=== PATIENT | male | born 1995 | race Caucasian/White ===

== ENCOUNTER 2021-09-30 18:46 | Emergency (ER) | payer BC, SELFPAY ==
[2021-09-30 18:54] VITALS: BP 145/77; PULSE 86; RESP 16; TEMP 36.6; O2SAT 96
--- NOTE | 2021-09-30 19:18 | ED.SKABFB ---
HPI - Skin/Abscess/Foreign Bdy General Chief complaint: Skin/Abscess/Foreign Body Stated complaint: R face/cheek swollen feels like an air pocket Time Seen by Provider: 09/30/21 19:09 History of Present Illness HPI narrative: Patient is a 26-year-old healthy male here for evaluation of a lesion on his cheek. He states that the lesion developed about 2 weeks ago, has been fluctuating in size since then. He has been squeezing the lesion and expressing blood. He states he has also been picking at the lesion quite frequently. Has not attempted any medication for the lesion. Denies fevers, chills, nausea, vomiting, dental pain. Related Data Allergies Allergy/AdvReac Type Severity Reaction Status Date / Time No Known Allergies Allergy Mild Unverified 04/16/08 15:40 Review of Systems Review of Systems: Gen: Denies fevers or chills Eyes: Denies eye pain or visual change ENT: Denies congestion Respiratory: Denies shortness of breath or cough CV: Denies chest pain or palpitations GI: Denies abdominal pain nausea, emesis or diarrhea denies burning, urgency, frequency or hematuria Musculoskeletal: Denies back pain or muscle pain Neuro: Denies numbness, tingling, weakness or focal weakness Skin: Reports lesion to right cheek Except as documented, all other systems reviewed and negative Exam Narrative: Gen: alert, oriented, no acute distress Eyes: EOMI, no icterus Pulm: Respirations even and unlabored, symmetric thorax expansion, no audible stridor or visible cyanosis CV: Regular rate per telemetry GI: No distension, no voluntary/involuntary guarding Neuro: AOx4, moves all extremities without apparent difficulty or weakness, follows commands Skin: patient has 1cm circular area of induration to right cheek that is open and draining serosanguineous material with manual manipulation. No surrounding erythema. Psych: Normal mood/affect, insight/judgement good, adequate fund of knowledge, recent/remote memory intact Course Vital Signs Vital signs: Vital Signs Temperature 97.9 F 09/30/21 18:54 Pulse Rate 86 09/30/21 18:54 Respiratory Rate 16 09/30/21 18:54 Blood Pressure 145/77 H 09/30/21 18:54 Pulse Oximetry 96 09/30/21 18:54 Oxygen Delivery Room Air 09/30/21 18:54 Temperature 97.9 F 09/30/21 18:54 Pulse Rate 86 09/30/21 18:54 Respiratory Rate 16 09/30/21 18:54 Blood Pressure 145/77 H 09/30/21 18:54 Pulse Oximetry 96 09/30/21 18:54 Oxygen Delivery Room Air 09/30/21 18:54 MDM - Skin/Abscess/Foreign Bdy MDM Narrative Medical decision making narrative: 26-year-old male here for evaluation of what appears to be a cyst on his cheek. He is nontoxic-appearing with normal vital signs. Do not feel incision and drainage is indicated given that the lesion is currently draining serosanguineous material. Will prescribe doxycycline for patient, discussed return precautions and voiced understanding. Discharge Plan Discharge Clinical Impression: Epidermoid cyst of skin of cheek Patient Disposition: Home, Self-Care Condition: Stable Instructions: Antibiotic Form, Cyst (ED) Additional Instructions: The lesion on your cheek is likely a cyst, which is a benign lesion. Please follow up with your PCP next week if the lesion does not improve with antibiotics. Return to the ED if you develop fevers, chills, nausea, vomiting. Prescriptions: New doxycycline hyclate 100 mg capsule 100 mg PO DAILY Qty: 7 0RF Follow-up/Referrals: PHYSICIAN,RN HEDIS [Primary Care Provider] -
== END 2021-09-30 19:41 | disposition home or self-care (01) ==
PROVIDERS: Emergency Provider Emergency Medicine
DX: L72.8 Other follicular cysts of the skin and subcutaneous tissue (principal)
CPT/HCPCS: 99283

== ENCOUNTER 2022-09-21 22:04 | Emergency (ER) | payer BC, SELFPAY ==
[2022-09-21 22:06] VITALS: BP 121/66; PULSE 83; RESP 15; TEMP 36.3; O2SAT 97
[2022-09-21 22:22] LABS: Basophils Percent Auto 0.7 % (0.2-1.2); Eosinophils Absolute Auto 0.1 K/mm3 (0-0.3); Eosinophils Percent Auto 1.8 % (0-4.4); Hematocrit 44.1 % (42.0-52.0); Immature Granulocyte Absolute 0.01 K/mm3 (0.00-0.031); Immature Granulocyte Percent A 0.2 % (0-0.5); Lymphocytes Absolute Auto 1.58 K/mm3 (0.9-3.2); Lymphocytes Percent Auto 28.4 % (18.3-44.2); Mean Corpuscular Hemoglobin 29.8 pg (26-34); Mean Corpuscular Volume 87.5 fl (80-100); Mean Platelet Volume 11.7 fl (7.4-10.4); Monocytes Absolute Auto 0.7 K/mm3 (0.1-0.6); Monocytes Percent Auto 11.9 % (2.6-8.5); Neutrophils Absolute Auto 3.2 K/mm3 (1.3-6.7); Platelet Count Result 163 k/mm3 (150-375); Red Blood Count 5.04 M/mm3 (4.6-6.20); Red Cell Distribution Width 12.4 % (11.5-14.5); White Blood Count 5.6 K/mm3 (4.5-10.0)
[2022-09-21 22:31] LABS: Alanine Aminotransferase 14 U/L (6-50); Albumin Level 4.5 g/dL (3.5-5.1); Alkaline Phosphatase 77 U/L (38-126); Anion Gap 7 mmol/L (8-16); Aspartate Amino Transferase 20 U/L (17-59); Bilirubin,Total 0.5 mg/dL (0.2-1.3); Blood Urea Nitrogen 12 mg/dL (9-20); Calcium 7.1 mg/dL (8.4-10.2); Carbon Dioxide 25 mmol/L (22-30); Chloride 102 mmol/L (98-107); Estimated Glomerular Filt Rate > 60; Glucose 93 mg/dL (65-110); Potassium 3.8 mmol/L (3.4-5.0); Sodium 134 mmol/L (137-145)
[2022-09-21 22:57] LABS: Influenza A QL RT-PCR Negative (Negative); Influenza B QL RT-PCR Negative (Negative); RSV RNA, RT-PCR Negative (Negative); SARS-CoV-2 RNA PCR Negative (Negative)
--- NOTE | 2022-09-21 23:10 | ED.GENADULT ---
HPI - General Adult General Chief complaint: Upper Respiratory Infection Stated complaint: cold symptoms Time Seen by Provider: 09/21/22 22:17 Source: patient Mode of arrival: ambulatory Limitations: no limitations History of Present Illness HPI narrative: This is a 27-year-old male who presents to the ED with chief complaint of viral URI symptoms for the past week. Reports that at times he feels like he is short of breath but feels like he cannot breathe through his nose. He reports a lot of sinus congestion and pressure as well as runny nose and sore throat. States that he feels like he is breathing fine right now. Denies chest pain, fevers, chills, abdominal pain, nausea, vomiting. Denies any known sick contacts. Related Data Allergies Allergy/AdvReac Type Severity Reaction Status Date / Time No Known Allergies Allergy Mild Unverified 04/16/08 15:40 Review of Systems Review of Systems: All systems as dictated in HPI Exam Narrative: GENERAL: Well-appearing, well-nourished, and in no acute distress. HEAD: Normocephalic, atraumatic. EYES: PERRLA and EOMI. ENT: Nares clear, no rhinorrhea or epistaxis. Mucous membranes moist. Oropharynx without tonsillar hypertrophy exudate or other lesions. NECK: Supple. No adenopathy or masses. CHEST: No respiratory distress. Clear to auscultation. No wheezes rales or rhonchi. Breath sounds equal bilaterally. HEART: Regular rate and rhythm. No murmur heard. Normal peripheral pulses. ABDOMEN: Soft, nontender, nondistended, normal active bowel sounds. MSK: Normal range of motion. No edema. SKIN: Warm, dry, no rash. NEURO: Alert and oriented x3. No focal deficits. PSYCH: Normal mood and affect. Course Vital Signs Vital signs: Vital Signs Temperature 97.4 F L 09/21/22 22:06 Pulse Rate 83 09/21/22 22:06 Respiratory Rate 15 09/21/22 22:06 Blood Pressure 121/66 09/21/22 22:06 Pulse Oximetry 97 09/21/22 22:06 Oxygen Delivery Room Air 09/21/22 22:06 Temperature 97.4 F L 09/21/22 22:06 Pulse Rate 83 09/21/22 22:06 Respiratory Rate 15 09/21/22 22:06 Blood Pressure 121/66 08/10/23 22:06 Pulse Oximetry 97 09/21/22 22:06 Oxygen Delivery Room Air 09/21/22 22:06 Medical Decision Making MDM Narrative Medical decision making narrative: This is a 27-year-old male who presents to the ED with chief complaint of viral URI symptoms for the past week. Vitals are normal. Exam is benign. Lab work is unremarkable. Negative strep and COVID and flu tests. Symptoms are consistent with viral upper respiratory infection. Prescriptions for albuterol, Flonase given. Also encourage patient to take Tylenol cold and sinus for congestion symptoms. Pt will be discharged in stable condition. Return precautions given and supportive measures discussed. Pt is understanding and agreeable with plan for discharge and follow-up with PCP. Vital Signs Vital Signs: Vital Signs Temperature 97.4 F L 09/21/22 22:06 Pulse Rate 83 09/21/22 22:06 Respiratory Rate 15 09/21/22 22:06 Blood Pressure 121/66 09/21/22 22:06 Pulse Oximetry 97 09/21/22 22:06 Oxygen Delivery Room Air 09/21/22 22:06 Temperature 97.4 F L 09/21/22 22:06 Pulse Rate 83 09/21/22 22:06 Respiratory Rate 15 09/21/22 22:06 Blood Pressure 121/66 09/21/22 22:06 Pulse Oximetry 97 09/21/22 22:06 Oxygen Delivery Room Air 09/21/22 22:06 Lab Data 09/21/22 22:16 09/21/22 22:16 Labs: Lab Results 09/21/22 Range/Units 22:16 WBC 5.6 (4.5-10.0) K/mm3 RBC 5.04 (4.6-6.20) M/mm3 Hgb 15.0 (14.0-18.0) g/dL Hct 44.1 (42.0-52.0) % MCV 87.5 (80-100) fl MCH 29.8 (26-34) pg MCHC 34.0 (32-36) g/dl RDW 12.4 (11.5-14.5) % Plt Count 163 (150-375) k/mm3 MPV 11.7 H (7.4-10.4) fl Immature Gran % (Auto) 0.2 (0-0.5) % Neut % (Auto) 57.0 (45.5-73.1) % Lymph % (Auto) 28.4 (18.3-44.2) % [place] % (Auto
== END 2022-09-21 23:21 | disposition home or self-care (01) ==
PROVIDERS: Emergency Medicine; Emergency Provider Physician Assistant; PCP Physician Assistant
DX: J06.9 Acute upper respiratory infection, unspecified (principal); Z20.822 Contact with and (suspected) exposure to COVID-19
CPT/HCPCS: 36415; 80053; 85025; 87637; 99283

== ENCOUNTER 2022-10-29 18:12 | Emergency (ER) | payer BC, SELFPAY ==
--- NOTE | ~2022-10-29 | XR_ITS ---
EXAMINATION: XR hand RT min 3V DATE: 10/29/2022 20:28 INDICATION: Dog bite to the posterior base of the second metacarpal TECHNIQUE: Posteroanterior, oblique and lateral views of the right hand were obtained. COMPARISON: None. FINDINGS: Alignment is normal. No fracture. Joint spaces are normal. Soft tissues are unremarkable. IMPRESSION: 1. Negative right hand radiographs. Reviewed, dictated and finalized at location A.
[2022-10-29 18:14] VITALS: BP 122/69; PULSE 77; RESP 14; TEMP 36.8; O2SAT 97
--- NOTE | 2022-10-29 20:13 | ED.ANIMALBIT ---
HPI - Animal Bite General Chief Complaint: Animal Bite Stated Complaint: dog bite R hand Time Seen by Provider: 10/29/22 19:31 History of Present Illness HPI narrative: Patient is a 27-year-old male presenting after dog bite. Patient states that the neighbors dog has been barking at him every time he walks by for the last week. Today the neighbor was outside and said the patient could try to pet the dog. The patient went to pet the dog and it immediately bit his hand. Unsure on vaccination status of the dog but they state that they can speak with the neighbor. They are going to file a police report. He has a puncture wound on his right hand, no other injuries. No further complaints. He is unsure on Tdap status. Related Data Allergies Allergy/AdvReac Type Severity Reaction Status Date / Time No Known Allergies Allergy Mild Verified 10/29/22 19:36 Review of Systems Review of Systems: All systems reviewed & are unremarkable except as noted in HPI and below Exam Narrative: GENERAL: Well-appearing and in no acute distress. Pleasant and cooperative HEAD: Normocephalic, atraumatic. EYES: PERRLA and EOMI. ENT: Mucous membranes moist. NECK: Supple. CHEST: No respiratory distress. HEART: Regular rate and rhythm ABDOMEN: Nondistended EXTREMITIES: puncture wound to dorsum of R hand at base of thumb with surround swelling and mild ecchymosis SKIN: Warm, dry, as above NEURO: No focal deficits. Alert and oriented x3. PSYCH: Normal mood and affect. Course Vital Signs Vital signs: Vital Signs Temperature 98.3 F 10/29/22 18:14 Pulse Rate 77 10/29/22 18:14 Respiratory Rate 14 10/29/22 18:14 Blood Pressure 122/69 10/29/22 18:14 Pulse Oximetry 97 10/29/22 18:14 Oxygen Delivery Room Air 10/29/22 18:14 Temperature 98.3 F 10/29/22 18:14 Pulse Rate 77 10/29/22 18:14 Respiratory Rate 14 10/29/22 18:14 Blood Pressure 122/69 10/29/22 18:14 Pulse Oximetry 97 10/29/22 18:14 Oxygen Delivery Room Air 10/29/22 18:14 MDM - Animal Bite MDM Narrative Medical decision making narrative: Patient is a 27-year-old male presenting after a dog bite. Vitals are stable. Exam remarkable for the above. X-ray shows no fractures or retained foreign bodies. Patient's Tdap was updated and he was given a dose of Augmentin. The wound was thoroughly irrigated. Patient states that he will follow-up with the neighbor regarding vaccination status. He will be filing a police report and speaking with animal control. Discussed with him if the animal does not have its shots or cannot be observed then he needs to come back for rabies series. Advised PCP follow-up. Appropriate return precautions given. Patient voiced understanding and is agreeable with plan. Discharged in stable condition. Differential Diagnosis Differential diagnosis: Likely bite by animal, cat bite and dog bite Medical Records Attestation: I reviewed the patient's medical records. Imaging Data Radiologist's impression: ITS Impressions Hand X-Ray 10/29/22 20:34 IMPRESSION: 1. Negative right hand radiographs. Critical Care Time Critical Care Time Critical Care Time: No Discharge Plan Discharge Clinical Impression: Dog bite Patient Disposition: Home, Self-Care Condition: Stable Instructions: Antibiotic Form, Animal Bite (ED) Additional Instructions: The x-rays today show no broken bones or retained foreign bodies. We have started you on antibiotics, please take these as prescribed. Please follow-up with your neighbor regarding the vaccination status of the dog. Please follow-up closely with primary care. If you develop signs of infection such as spreading redness, drainage, fevers, or other concerning symptoms, please return to the ER. Prescriptions: New amoxicillin-pot clavulanate 875-125 mg tablet 1 tablet PO Q12H Qty: 20 0RF No Action doxycycline hyclate 100 mg capsule 100 mg
[2022-10-29] MEDS: AMOXICILLIN/CLAVULANATE K 875-125 MG TAB 1 TABLET PO (20:28)
[2022-10-29] MEDS: TETANUS,DIPHTHERIA,AC PERTUSSIS ADULT (0.5 ML) BOOSTRIX IM (20:28)
== END 2022-10-29 21:04 | disposition home or self-care (01) ==
PROVIDERS: Emergency Provider Emergency Medicine; PCP Physician Assistant
DX: S61.451A Open bite of right hand, initial encounter (principal); W54.0XXA Bitten by dog, initial encounter; Z23 Encounter for immunization
CPT/HCPCS: 73130; 90471; 90715; 99283; A9270

== ENCOUNTER 2023-04-14 22:41 | Emergency (ER) | payer BC, SELFPAY ==
[2023-04-14 22:52] VITALS: BP 119/69; PULSE 98; RESP 15; TEMP 36.4; O2SAT 97
--- NOTE | 2023-04-14 23:58 | ED.GENADULT ---
HPI - General Adult General Chief complaint: Upper Respiratory Infection Stated complaint: cold, congestion Time Seen by Provider: 04/14/23 23:01 Source: patient Mode of arrival: ambulatory Limitations: no limitations History of Present Illness HPI narrative: This is a 28-year-old male who presents to the ED with chief complaint of URI symptoms for the past 2 days. Endorses cough, congestion, subjective fevers. Also reports sore throat. Denies shortness of breath, chest pain, abdominal pain, nausea, vomiting, neck pain, headache. Related Data Allergies Allergy/AdvReac Type Severity Reaction Status Date / Time No Known Allergies Allergy Mild Verified 04/15/23 00:09 Review of Systems Review of Systems: All systems as dictated in HPI Exam Narrative: GENERAL: Well-appearing, well-nourished, and in no acute distress. HEAD: Normocephalic, atraumatic. EYES: PERRLA and EOMI. ENT: Nares clear, no rhinorrhea or epistaxis. Mucous membranes moist. Oropharynx without tonsillar hypertrophy exudate or other lesions. NECK: Supple. No adenopathy or masses. CHEST: No respiratory distress. Clear to auscultation. No wheezes rales or rhonchi HEART: Regular rate and rhythm. No murmur heard. Normal peripheral pulses. ABDOMEN: Soft, nontender, nondistended, normal active bowel sounds. MSK: Normal range of motion. No edema. SKIN: Warm, dry, no rash. NEURO: Alert and oriented x3. No focal deficits. PSYCH: Normal mood and affect. Course Vital Signs Vital signs: Vital Signs Temperature 97.5 F L 04/14/23 22:52 Pulse Rate 98 04/14/23 22:52 Respiratory Rate 15 04/14/23 22:52 Blood Pressure 119/69 04/14/23 22:52 Pulse Oximetry 97 04/14/23 22:52 Temperature 97.5 F L 04/14/23 22:52 Pulse Rate 87 04/15/23 01:18 Respiratory Rate 16 04/15/23 01:18 Blood Pressure 124/68 04/15/23 01:18 Pulse Oximetry 99 04/15/23 01:18 Oxygen Delivery Room Air 04/15/23 00:09 Medical Decision Making [facility] Narrative Medical decision making narrative: This is a 28-year-old male presents to the ED for chief complaint of URI symptoms for the past 2 days. Vitals are normal. Exam is benign. Presentation consistent with viral syndrome. Viral swabs here negative. Centor criteria for strep throat is 0. Pt will be discharged in stable condition. Return precautions given and supportive measures discussed. Pt is understanding and agreeable with plan for discharge and follow-up with PCP. Vital Signs Vital Signs: Vital Signs Temperature 97.5 F L 04/14/23 22:52 Pulse Rate 98 04/14/23 22:52 Respiratory Rate 15 04/14/23 22:52 Blood Pressure 119/69 04/14/23 22:52 Pulse Oximetry 97 04/14/23 22:52 Temperature 97.5 F L 04/14/23 22:52 Pulse Rate 87 04/15/23 01:18 Respiratory Rate 16 04/15/23 01:18 Blood Pressure 124/68 04/15/23 01:18 Pulse Oximetry 99 04/15/23 01:18 Oxygen Delivery Room Air 04/15/23 00:09 Lab Data Labs: Lab Results 04/14/23 Range/Units 22:57 Influenza A (RT-PCR) Negative (Negative) Influenza B (RT-PCR) Negative (Negative) RSV (RT-PCR) Negative (Negative) SARS-CoV-2 RNA (RT-PCR) Negative (Negative) Discharge Plan Discharge Clinical Impression: Upper respiratory infection Patient Disposition: Home, Self-Care Condition: Stable Instructions: Antibiotic Form, Viral Syndrome (ED) Additional Instructions: Your exam today is consistent with viral syndrome. Follow-up with PCP. Make sure they stay well hydrated. Take Tylenol and ibuprofen every 4-6 hours as needed for pain and fevers. If you have any new or worsening symptoms please return to the ER for further evaluation. Prescriptions: No Action doxycycline hyclate 100 mg capsule 100 mg PO DAILY Qty: 7 0RF albuterol sulfate 90 mcg/actuation HFA aerosol inhaler 2 puff inhalation QID PRN (Reason: shortness of breath or wheezing) Qty: 6.7 0RF flutic
[2023-04-15 00:09] VITALS: O2SAT 97
[2023-04-15 00:48] LABS: Influenza A QL RT-PCR Negative (Negative); Influenza B QL RT-PCR Negative (Negative); RSV RNA, RT-PCR Negative (Negative); SARS-CoV-2 RNA PCR Negative (Negative)
[2023-04-15 01:18] VITALS: BP 124/68; PULSE 87; RESP 16; O2SAT 99
== END 2023-04-15 01:19 | disposition home or self-care (01) ==
PROVIDERS: Emergency Medicine; Emergency Provider Physician Assistant; PCP Physician Assistant
DX: J06.9 Acute upper respiratory infection, unspecified (principal); Z20.822 Contact with and (suspected) exposure to COVID-19
CPT/HCPCS: 87637; 99283

== ENCOUNTER 2024-03-14 09:29 | Emergency (ER) | payer BC, SELFPAY ==
[2024-03-14 10:02] VITALS: BP 127/78; PULSE 91; RESP 16; TEMP 36.8; O2SAT 97
--- NOTE | 2024-03-14 10:23 | ED.EYEPROB ---
HPI - Eye Problem General Chief complaint: Eye Problems Stated complaint: BLISTERS BELOW L EYE Time Seen by Provider: 03/14/24 09:33 Source: patient Mode of arrival: ambulatory Limitations: no limitations History of Present Illness HPI Narrative: Patient is a 20-year-old male who presents with blister/pustules under left eye near cheek bone for 4 days. Patient describes it as burning and is painful intermittently. Denies any vision changes, drainage from eye, or pain in eyeball itself. Related Data Allergies Allergy/AdvReac Type Severity Reaction Status Date / Time No Known Allergies Allergy Mild Verified 03/14/24 09:59 Review of Systems Review of Systems: All systems reviewed & are unremarkable except as noted in HPI and below Constitutional: Constitutional: Denies body ache(s), Denies fever(s), Denies headache(s), Denies malaise and Denies weakness Eyes: Eyes: Reports blurry vision, Reports eye discharge, Reports irritation, Reports itchy eyes, Denies loss of vision and Reports eye pain ENT: Denies otalgia, Denies headache(s), Denies nasal discharge, Denies sinus pain and Denies sore throat Cardiovascular: Cardiovascular: Denies chest pain, Denies irregular heart rhythm and Denies dyspnea Respiratory: Respiratory: Denies dyspnea Gastrointestinal: Gastrointestinal: Denies abdominal pain, Denies diarrhea, Denies nausea and Denies vomiting Musculoskeletal: Musculoskeletal: Denies back pain, Denies myalgias and Denies arthralgias Integumentary/Breasts: Skin/Breast: Denies pruritus, Reports new lesions, Denies rash and Reports skin pain Neurologic: Denies headache(s), Denies loss of vision and Denies weakness Psychiatric: Psychiatric: Reports no additional psychiatric complaints Allergic/Immunologic: Allergic/Immunologic: Reports itchy eyes PMFSH Comments At time of signature, agree with nursing past medical, surgical, social and family history. There is no relevant family history pertinent to the presenting complaint. Exam Const: General: cooperative, healthy appearing, comfortable, no acute distress and well nourished Nutritional Appearance: well nourished Orientation/consciousness: patient oriented x3 Limitations: no limitations HENMT: Head: normal to inspection, normocephalic and atraumatic Ears: external ears normal Face/Nose/Sinus: Normal external nose present, normal facial exam and face symmetric Face and sinus: normal facial exam and face symmetric Mouth: Yes lip normal Eyes: General: appearance normal, both eyes and all related structures Visual Mills: normal visual mills by confrontation Alignment and Position: alignment normal and position normal Periorbital: periorbital findings normal Eyelids: eyelid abnormality right upper eyelid erythema and swelling and right lower eyelid erythema and swelling Conjunctivae: conjunctival abnormality right conjunctival injection diffuse Sclera: scleral abnormality right scleral injection diffuse Pupils: Equal, round and reactive pupils present EOM: EOMs intact bilaterally Direct Ophthalmoscopy: no photophobia Other: No hyphema, no foreign body under the lids. Neck: Neck: normal visual inspection, full ROM, no lymphadenopathy and no meningeal signs Chest: Chest palpation & inspection: normal inspection of the chest Resp: Effort & Inspection: normal respiratory effort and able to speak in complete sentences Auscultation: clear to auscultation bilaterally Cardio: Rate: regular rate Rhythm: regular rhythm Heart sounds: S1 normal heart sound present and S2 normal heart sound present GI: Inspection: normal to inspection Skin: General skin exam: normal color Rashes: rashes noted vesicles left cheek size (0.25 cm vesicles), arrangement grouped, borders sharp, color with an erythematous base, surface erythematous and wet and tender; fluctuant not assessed Full body images:  1. 1.5 cm area of grouped vesicles Neuro: General: patient oriented x3, moves all extremities and no meningeal signs Cranial nerves: Yes Equal, round and reactive pupils present Speech: normal speech Gait exam (Neuro): Normal gait present Extrem: General: normal to inspection, full ROM and no edema Psych: Appearance: grossly normal and well kempt Mental Status: mental status grossly normal Speech and movement: Normal speech and movement present Affect: normal affect Attitude: cooperative Thought process: Normal thought process present Course Course Emergency Course: Patient is aware of diagnosis, understands and agrees to treatment plan. Anticipatory guidance given. Patient agrees to follow-up as directed and is aware of reasons to seek care at the emergency department. Portions of this record may have been created with voice recognition software Level of Care: Express Care Visit Vital Signs Vital signs: Vital Signs Temperature 36.8 C 03/14/24 10:02 Pulse Rate 91 03/14/24 10:02 Respiratory Rate 16 03/14/24 10:02 Blood Pressure 127/78 03/14/24 10:02 Pulse Oximetry 97 03/14/24 10:02 Temperature 36.8 C 03/14/24 10:02 Pulse Rate 91 03/14/24 10:02 Respiratory Rate 16 03/14/24 10:02 Blood Pressure 127/78 03/14/24 10:02 Pulse Oximetry 97 03/14/24 10:02 Reviewed MDM - Eye Problem MDM Narrative Medical decision making narrative: Patient was seen yesterday at [facility] in [place]. Family unsure of doctor's name. Reports patient had rash at that time and irrigator head did not have concerns. Reports internal eye exam is normal. Reports they do not want to go to the ER at this time some today for just seen by Ophthalmology, but will if there are any changes to rash or vision in left eye. Will start patient on antiviral and have them follow-up with PCP. Patient also given number for [facility]. Pt well hydrated appearing, in no respiratory distress, hemodynamically stable. Recommend supportive care. The patient is stable at time of discharge the clinical impression was discussed and the patient was given the opportunity to ask questions, which were addressed as completely as possible given the information available at present. Anticipatory guidance and return to care precautions were discussed and the importance of primary care follow-up was stressed and encouraged. The patient voiced understanding of the plan, indications to return, and the need for follow-up. Differential Diagnosis Differential diagnosis: Likely conjunctivitis, periorbital cellulitis and other (Impetigo, shingles) Medical Records Attestation: I reviewed the patient's medical records. Discharge Plan Discharge Clinical Impression: Shingles Patient Disposition: Home, Self-Care Condition: Stable Instructions: Shingles (ED) Additional Instructions: Alternate Tylenol and Motrin for pain, body aches, fever. You may take 2 regular strength Tylenol every 4 hours, alternate with 3 regular strength Motrin every 6 hours so you are taking something every 2-3 hours. Shingles pain can last weeks, sometimes months. If your pain persists after antiviral medication is complete please follow-up with your primary care provider for a long-term pain control plan. Follow-up with your doctor in the next 2 to 3 days. Go to the emergency room if you have any spreading of rash, eye swelling, vision changes. Priority emergency room is [facility] You should follow-up with an eye doctor within the next 72 hours [facility]: [place]- [phone] [facility] [phone] [facility] [phone] Jessica: [facility] [phone] or [phone] [facility] [phone] [facility] [phone] [place]- [phone] ? [facility]- [phone] Patient Language: Gu[place]ian Prescriptions: New valacyclovir 1 gram tablet 1,000 mg PO TID 7 Days Qty: 21 0RF Follow-up/Referrals: Manuel Mckoy MD [Physician] - UNKNOWN,DOCTOR [Primary Care Provider] - Time of Disposition: 10:49
== END 2024-03-14 10:52 | disposition home or self-care (01) ==
PROVIDERS: Emergency Provider Nurse Practitioner Family
DX: B02.9 Zoster without complications (principal)
CPT/HCPCS: 99213; G0463